=== PATIENT | male | born 1945 | race Caucasian/White ===

== ENCOUNTER 2016-05-26 05:31 | Inpatient (IN) | payer OTHER ==
[2016-05-26] MEDS ORDERED: CHLORHEXIDINE GLUC HIBICLENS 118 ML BTL TP ONE (06:00)
[2016-05-26] MEDS ORDERED: ceFAZolin 2 GM/DEXTROSE 100 ML IV ONE (06:00)
[2016-05-26] MEDS ORDERED: LR 1,000 ML IV ONE (06:11)
[2016-05-26] MEDS ORDERED: LIDOCAINE 1% 5 ML SDV ID PRN (06:11)
[2016-05-26] MEDS ORDERED: BUPIVACAINE/EPI 0.25% 30 ML SDV ONE (06:29)
[2016-05-26] MEDS ORDERED: THROMBIN (RECOMBINANT) 5,000 UNIT VIAL TP ONE (06:29)
[2016-05-26] MEDS ORDERED: BACITRACIN 50,000 UNITS/10 ML SYR IRR ONE ×2 (06:30→15:26)
[2016-05-26 06:43] LABS: % IMMATURE GRANULYOCYTES 0.2 % (0.0-1.1); ABSOLUTE IMMATURE GRANULOCYTES 0.01 10^3/uL (0.00-0.10); ADD DIFF? NO; ADD MORPH? NO; ADD SCAN? NO; ATYPICAL LYMPHOCYTE FLAG 0 (0-99); FRAGMENT RBC FLAG 0 (0-99); HEMATOCRIT 41.4 % (40.0-51.0); LEFT SHIFT FLG 0 (0-99); LIPEMIA HEMOLYSIS FLAG 90 (0-99); MEAN CELL HEMOGLOBIN 28.7 pg (27.9-34.1); MEAN CELL HEMOGLOBIN CONCENTR. 33.8 g/dL (32.4-36.7); MEAN CELL VOLUME 84.8 fL (81.5-99.8); MEAN PLATELET VOLUME 9.9 fL (8.7-11.7); PLATELET CLUMPS FLAG 0 (0-99); PLATELET COUNT 143 10^3/uL (150-400); RED BLOOD CELL COUNT 4.88 10^6/uL (4.40-6.38); RED CELL DISTRIBUTION WIDTH 12.8 % (11.5-15.2)
[2016-05-26 07:04] LABS: ANION GAP 12 mEq/L (8-16); CALCIUM 9.2 mg/dL (8.5-10.4); CARBON DIOXIDE 26 mEq/l (22-31); CHLORIDE 105 mEq/L (97-110); CREATININE 1.4 mg/dL (0.7-1.3); GLOMERULAR FILTRATION RATE 50; GLUCOSE 94 mg/dL (70-100); POTASSIUM 4.2 mEq/L (3.5-5.2); SODIUM 143 mEq/L (134-144)
[2016-05-26] MEDS ORDERED: DIAZEPAM 5 MG TAB PO PRN (07:42)
[2016-05-26] MEDS ORDERED: LACTULOSE 20 GM/30 ML UDCUP PO PRN (07:42)
[2016-05-26] MEDS ORDERED: diphenhydrAMINE 25 MG CAP PO PRN (07:42)
[2016-05-26] MEDS ORDERED: BISACODYL 10 MG SUPP PR PRN (07:42)
[2016-05-26] MEDS ORDERED: ONDANSETRON 4 MG/2 ML VIAL IVP PRN (07:42)
[2016-05-26] MEDS ORDERED: HYDROmorphONE/DILAUDID 1 MG/ML SYR IVP PRN (07:42)
[2016-05-26] MEDS ORDERED: METHOCARBAMOL 750 MG TAB PO PRN (07:42)
[2016-05-26] MEDS ORDERED: POLYETHYLENE GLYCOL 3350 17 GM PKT PO PRN (07:42)
[2016-05-26] MEDS ORDERED: oxyCODONE IR 5 MG TAB PO PRN (07:42)
[2016-05-26] MEDS ORDERED: ACETAMINOPHEN 325 MG TAB PO PRN (07:42)
[2016-05-26] MEDS ORDERED: HYDROmorphONE/DILAUDID 6 MG/30 ML PCA IV PRN (07:42)
[2016-05-26] MEDS ORDERED: NALOXONE HCL 0.4 MG/ML INJ IVP PRN (07:42)
[2016-05-26] MEDS ORDERED: MAGNESIUM HYDROXIDE 30 ML UDCUP PO PRN (07:42)
[2016-05-26] MEDS ORDERED: DIAZEPAM 10 MG/2 ML SYR IVP PRN (07:42)
[2016-05-26] MEDS ORDERED: ONDANSETRON DISINTEGRATING 4 MG TAB PO PRN (07:42)
[2016-05-26] MEDS ORDERED: HYDROCODONE/APAP 10/325 TAB PO PRN (07:42)
[2016-05-26] MEDS ORDERED: TEMAZEPAM 15 MG CAP PO PRN (07:42)
[2016-05-26] MEDS ORDERED: NS W/ 20 KCl/L 1,000 ML IV SCH (07:45)
[2016-05-26] MEDS ORDERED: CEFAZOLIN 2 GM/DEXTROSE/100 ML BAG IV ONE (15:10)
[2016-05-26] MEDS ORDERED: MIDAZOLAM 2 MG/2 ML VIAL ONE (15:37)
[2016-05-26] MEDS ORDERED: KETAMINE 100 MG/10 ML SYR IVP ONE (15:55)
[2016-05-26] MEDS ORDERED: fentaNYL 100 MCG/2 ML INJ ONE ×3 (15:55→20:14)
[2016-05-26] MEDS ORDERED: REMIFENTANIL HCL 1 MG VIAL ONE (15:55)
[2016-05-26] MEDS ORDERED: PROPOFOL/EMULSION 500 MG/50 ML BOTTLE IV ONE (15:56)
[2016-05-26] MEDS ORDERED: PROPOFOL 200 MG/20 ML VIAL ONE (15:56)
[2016-05-26] MEDS ORDERED: fentaNYL 250 MCG/5 ML INJ ONE (17:08)
[2016-05-26 18:23] LABS: HEMATOCRIT 33.6 % (40.0-51.0); HEMOGLOBIN 11.3 g/dL (13.7-17.5)
--- NOTE | 2016-05-26 20:06 | DX ---
Intraoperative fluoroscopy. May 26, 2016. History: Lumbar spine surgery. Discussion: 34.06 seconds of intraoperative fluoroscopy, and [address] Jorden heaton lumbar spine instrumentation and fusion. Radiographs obtained during the procedure demonstrate placement of bilateral pedicle screws at L3, L4 , and L5 with posterior natalia fixation and metallic intervertebral graft at L3-L4 and L4-L5. There is a natomic alignment through the operative levels. Impression: 1. Intraoperative fluoroscopy during instrumentation and fusion of lumbar spine from L3 through L5.
--- NOTE | 2016-05-26 20:35 | SOAPPROG ---
SOAP Progress Note Assessment/Plan: Post Op Visit: S: Awake and alert. NAD. Pt with expected lower back pain O: AFVSS/PERRLA/EOMI no droop CN 2-12 grossly intact +lt touch 5/5 BUE/BLE = CDI [place] in place A/P: 70 yo male that is s/p TLIF at L3/4 and L4/5 -orders in -brace when out of bed -call with any questions or concerns -pt seen by Dr Rosario 05/26/16 20:33 Objective: Laboratory Results 05/26/16 18:10 05/26/16 06:35 ICD10 Worksheet Patient Problems: Problems Problem Status Diagnosed Arthrodesis status Acute Lumbar radicular pain Acute Lumbar stenosis Acute CAD - Coronary arteriosclerosis Acute Cardiomyopathy Acute Ventricular tachycardia Acute - ICD10 Problem Qualifiers (1) Lumbar stenosis (2) Lumbar radicular pain (3) Arthrodesis status
--- NOTE | 2016-05-26 20:49 | GOP ---
[f rep st] OPERATIVE REPORT DATE OF OPERATION: 05/26/2016 SURGEON: Judy Rosario MD BUILDING MAINTENANCE SUPERVISOR: Deric Domínguez PA-C PREOPERATIVE DIAGNOSIS: Right lumbosacral radiculopathy. Lumbar spondylolisthesis L4-5. Left L4 pars interarticularis fracture. Prior left L4-5 hemilaminotomy. Spinal stenosis at L3-4, L4-5. Lumbar degenerative disk disease L3-4, L4-5. POSTOPERATIVE DIAGNOSIS: Right lumbosacral radiculopathy. Lumbar spondylolisthesis L4-5. Left L4 pars interarticularis fracture. Prior left L4-5 hemilaminotomy. Spinal stenosis at L3-4, L4-5. Lumbar degenerative disk disease L3-4, L4-5. PROCEDURE PERFORMED: Posterolateral and intervertebral arthrodesis with right-sided decompressions L 3-4, L4-5 (17592, 52109), placement of biomechanical intervertebral device L3-4, L4-5 without anchors (47809 x2), same-incision bone graft harvest (94306), posterior segmental instrumentation L3, L4, L5 (59699), spinal stereotaxy (57784), microscope. FINDINGS: ESTIMATED BLOOD LOSS: 400 cc. INDICATIONS: The patient is a gentleman with a prior successful left-sided decompression at L4-5 who presented with increasing right-sided gluteal pain that was unresponsive to conservative measures, a nd CT myelogram demonstrated progressive changes at L3-4, L4-5, and a new left inferior articulating process fracture on the left of L4, with a spondylolisthesis at L4-5 and progression of degenerative disk disease L3-4, L4 5 with stenosis. I suggested a 2-level decompression with a fusion at L3-4, L4 -5 and the risk of screw and hardware malposition, malfunction, adjacent segment disease, nerve injur y, spinal fluid leak, continued symptoms, major vascular injury was discussed. He knew that he is at risk of pseudoarthrosis and this risk was increased given his diabetes. He accepted these risks. H e wanted to proceed. DESCRIPTION OF PROCEDURE: The patient was taken to the operating room, placed in the supine position . General anesthesia was begun. He was flipped prone onto the Jhonathan table. Care was taken to pad all points of contact. He had a percutaneous defibrillator in place and this was accessible by the inseam leveler. He was sterilely prepped and draped in the usual fashion. We opened his prior incision , made about a 7 cm incision in the lumbosacral spine in the midline. The subcutaneous tissue was di ssected using Bovie cautery down to the fascia. A Subperiosteal dissection was made down the inferio r lamina of L2. The laminae of L3, 4 and 5 was exposed. We shot a localizing x-ray, removed the hyp ertrophic facets bilaterally at L3-4, L4 5, preserving the L2-3 joint. The Stealth reference frame w as placed. We placed pedicle screws bilaterally at L3, L4, and L5. They were all in excellent posit ion. They all stimulated greater than 20 milliamperes. We took 60 mm rods, increased the lordosis i n the rods, placed them down over the screws, and distracted L3-4, L4-5, and got reduction of the spo ndylolisthesis of L4. We were very happy with this and we tightened the rods in this configuration. We then removed all soft tissue from bone at L3-4, L4-5, and then harvested the entire L4 spinous pr ocess for autologous grafting purposes and the inferior L3 spinous process for autologous grafting pu rposes. Under the operating microscope, we drilled a right L3-4, L4-5 hemilaminectomy and harvested this bone for autologous grafting purposes, and used a Kerrison punch to perform hemilaminectomies on the right at L3-4, L4-5, removing the complete IAP of L3 and L4 on the right, decompressing the exit ing L3 and L4 nerve roots on the right-hand side. The lateral thecal sac and central thecal sac were decompressed at each level, and there was severe stenosis for both the L4 and the L5 nerve root. Th e L5 nerve root in particular was crushed in the lateral recess by severe spondylosis, and he had a v rukhsana deep lateral recess on the right at L4-5. A nice decompression was obtained. We mobilized both the traversing L5 root and the traversing L4 root at each of the spaces, and under the scope we remov ed the disk and the cartilaginous endplates at L3-4 and L4-5 and roughened the subchondral bone to cr eate arthrodesis. We then sized and chose a 7 x 28 mm expandable cage for L3-4 and an 8 x 28 mm cage for L4-5, inserted the devices under fluoroscopic guidance, and then expanded them according to comp any specification. We placed BMP and bone autograft into the disk space as well to create arthrodesi s. They were in excellent position. We decorticated all the remaining bone posterolaterally bilater ally at L3-4, L4-5, and then placed bone autograft and BMP posterolaterally bilaterally from L3 all t he way down the L5. A subfascial drain and a cross-link was placed and torqued to company specificat ion. We closed the incision in multiple layers using Vicryl sutures. A running PDS was placed in th e skin itself. There were no complications. COMPLICATIONS: None. /[id number]/MODL
[2016-05-26] MEDS: CARVEDILOL 25 MG TAB PO SCH ×2 (22:10→22:28)
[2016-05-26] MEDS: glyBURIDE 5 MG TAB PO SCH ×2 (22:11→22:29)
[2016-05-26] MEDS: FUROSEMIDE 20 MG TAB PO SCH (22:11)
[2016-05-26] MEDS: FAMOTIDINE 20 MG/NACL 50 ML IV SCH ×2 (22:11→22:29)
[2016-05-26] MEDS: metFORMIN HCL 500 MG TAB PO SCH ×2 (22:12→22:30)
[2016-05-26] MEDS: LOSARTAN POTASSIUM 25 MG TAB PO SCH (22:12)
[2016-05-26] MEDS: morphINE SR 15 MG TAB PO SCH ×2 (22:12→22:30)
[2016-05-26] MEDS: SENNOSIDES/DOCUSATE SODIUM TAB PO SCH ×2 (22:13→22:31)
[2016-05-26] MEDS: PANTOPRAZOLE SODIUM 40 MG TAB PO SCH (22:13)
[2016-05-26] MEDS: ATORVASTATIN CALCIUM 40 MG TAB PO SCH (22:27)
[2016-05-27 04:49] LABS: % IMMATURE GRANULYOCYTES 0.4 % (0.0-1.1); ABSOLUTE IMMATURE GRANULOCYTES 0.03 10^3/uL (0.00-0.10); ADD DIFF? NO; ADD MORPH? NO; ADD SCAN? NO; ATYPICAL LYMPHOCYTE FLAG 0 (0-99); FRAGMENT RBC FLAG 0 (0-99); HEMATOCRIT 31.7 % (40.0-51.0); HEMOGLOBIN 10.9 g/dL (13.7-17.5); LEFT SHIFT FLG 0 (0-99); LIPEMIA HEMOLYSIS FLAG 90 (0-99); MEAN CELL HEMOGLOBIN 28.9 pg (27.9-34.1); MEAN CELL HEMOGLOBIN CONCENTR. 34.4 g/dL (32.4-36.7); MEAN CELL VOLUME 84.1 fL (81.5-99.8); MEAN PLATELET VOLUME 9.8 fL (8.7-11.7); PLATELET CLUMPS FLAG 10 (0-99); PLATELET COUNT 117 10^3/uL (150-400); RED BLOOD CELL COUNT 3.77 10^6/uL (4.40-6.38); RED CELL DISTRIBUTION WIDTH 12.7 % (11.5-15.2)
[2016-05-27 05:13] LABS: ANION GAP 7 mEq/L (8-16); CALCIUM 7.9 mg/dL (8.5-10.4); CARBON DIOXIDE 24 mEq/l (22-31); CHLORIDE 105 mEq/L (97-110); GLUCOSE 131 mg/dL (70-100); POTASSIUM 4.7 mEq/L (3.5-5.2); SODIUM 136 mEq/L (134-144)
[2016-05-27 05:14] LABS: GLOMERULAR FILTRATION RATE > 60
[2016-05-27] MEDS: LOSARTAN POTASSIUM 25 MG TAB PO SCH (08:25)
[2016-05-27] MEDS: CARVEDILOL 25 MG TAB PO SCH ×2 (08:25→18:21)
[2016-05-27] MEDS: glyBURIDE 5 MG TAB PO SCH ×3 (08:25→22:05)
[2016-05-27] MEDS: SENNOSIDES/DOCUSATE SODIUM TAB PO SCH ×2 (08:26→22:05)
[2016-05-27] MEDS: FUROSEMIDE 20 MG TAB PO SCH (08:27)
[2016-05-27] MEDS: metFORMIN HCL 500 MG TAB PO SCH ×2 (08:27→18:21)
[2016-05-27] MEDS: morphINE SR 15 MG TAB PO SCH ×2 (08:27→22:08)
[2016-05-27] MEDS: PANTOPRAZOLE SODIUM 40 MG TAB PO SCH (08:28)
[2016-05-27] MEDS: FAMOTIDINE 20 MG/NACL 50 ML IV SCH (08:31)
[2016-05-27] MEDS: INSULIN GLARGINE 100 UNITS/ML SYRINGE SC SCH (08:57)
--- NOTE | 2016-05-27 09:09 | NEUSURGPN ---
Date of Surgery: 05/26/16 Post Op Day: 1 Assessment/Plan: Assessment: 70 yo male that is s/p TLIF at L3/4 and L4/5 POD #1 Plan: -s/p TLIF at L3/4 and L4/5-pt with expected lower back pain -tolerating brace fine -PT/OT ordered -pending post op xrays today -continue with current pain management strategy -brace when out of bed -call with any questions or concerns -pt seen by Dr Rosario 05/26/16 20:33 Subjective: Awake and alert. NAD. Eating/drinking and voiding. No f/c/n/v/d. Pt with expected lower back pain Objective: AFVSS/PERRLA/EOMI no droop CN 2-12 grossly intact +lt touch 5/5 BUE/BLE = CDI [place] in place Neuro Check Frequency: per routine Urinary Catheter in Place: No Catheter Insertion Date: 05/26/16 - Physician Discussed Patient with DrGolden: Abraham Patient Seen by : Abraham Neurosurgery Physical Exam - Vitals, I&O, Labs I and O 05/26/16 05/27/16 05/28/16 05:59 05:59 05:59 Intake Total 3730 Output Total 1950 50 Balance 1780 -50 Intake: Oral (ml) 30 IV Intake (ml) 3000 IV Infused (ml) 700 ceFAZolin 1 GM/DEXTROSE 50 50 ml @ 200 mls/hr IV Q8H [facility] Rx#:[id number] Famotidine 20 mg/NaCl 50 50 ml @ 200 mls/hr IV Q12HRS [facility] Rx#:[id number] NS W/ 20 KCl/L 1,000 ml @ 600 75 mls/hr IV CONT [facility] Rx #:[id number] Output: Urine (ml) 1075 Catheter 1075 Estimated Blood Loss (ml) 500 Wound Drainage (ml) 375 50 #1 Posterior Back Jhonathan 290 50 Fisher Right Jhonathan Fisher 85 Other: Output Comment Catheter blood with cath removal Bladder Scan Volume (ml) Catheter 0 Vital Signs Temp Pulse Resp BP Pulse Ox 37.1 C 85 15 123/77 H 97 05/27/16 07:59 05/27/16 07:59 05/27/16 07:59 05/27/16 07:59 05/27/16 07:59 Laboratory Results 05/27/16 04:32 05/27/16 04:32 ICD10 Worksheet Patient Problems: Problems Problem Status Diagnosed Arthrodesis status Acute Lumbar radicular pain Acute Lumbar stenosis Acute CAD - Coronary arteriosclerosis Acute Cardiomyopathy Acute Ventricular tachycardia Acute - ICD10 Problem Qualifiers (1) Lumbar stenosis (2) Lumbar radicular pain (3) Arthrodesis status
--- NOTE | 2016-05-27 10:08 | DX ---
Lumbar Spine, Two Views. History: Postoperative evaluation. Comparison: CT January 2016. Findings: Postsurgical changes are seen of fusion L3-L5. There are paired pedicle screws and stabiliz ation rods. Interbody bone graft and spacers are seen at these two levels in good position. There is 5 mm retrolisthesis of L2 on L3. There is 4 mm anterolisthesis of L5 on S1. No evidence for acute fr acture. Anterior and lateral osteophytosis is seen at multiple levels. Laminectomy at L4. Single drai n is seen in place posteriorly. Impression: Postsurgical changes of fusion L3-L5 as above. Mild listhesis at L2-L3 and L5-S1.
[2016-05-27] MEDS: ATORVASTATIN CALCIUM 40 MG TAB PO SCH (18:21)
[2016-05-28 04:45] VITALS: TEMP 97.5
[2016-05-28 08:10] VITALS: BP 106/53; PULSE 84; RESP 14; O2SAT 92
[2016-05-28] MEDS: CARVEDILOL 25 MG TAB PO SCH (08:11)
[2016-05-28] MEDS: LOSARTAN POTASSIUM 25 MG TAB PO SCH (08:12)
[2016-05-28] MEDS: PANTOPRAZOLE SODIUM 40 MG TAB PO SCH (08:12)
[2016-05-28] MEDS: metFORMIN HCL 500 MG TAB PO SCH (08:12)
[2016-05-28] MEDS: FUROSEMIDE 20 MG TAB PO SCH (08:14)
[2016-05-28] MEDS: INSULIN GLARGINE 100 UNITS/ML SYRINGE SC SCH (08:14)
[2016-05-28] MEDS: glyBURIDE 5 MG TAB PO SCH (08:14)
[2016-05-28] MEDS: SENNOSIDES/DOCUSATE SODIUM TAB PO SCH (08:14)
[2016-05-28] MEDS: morphINE SR 15 MG TAB PO SCH (10:37)
--- NOTE | 2016-05-28 11:28 | NEUSURGPN ---
Date of Surgery: 05/26/16 Post Op Day: 2 Assessment/Plan: Assessment: 70 yo male that is s/p TLIF at L3/4 and L4/5 POD #2 Plan: -s/p TLIF at L3/4 and L4/5- doing well overall. pain well controlled this AM -tolerating brace fine -PT/OT ordered -continue with current pain management strategy -brace when out of bed -call with any questions or concerns -DC today Subjective: in bedside chair, doing well. Pain well controlled ambulatory Objective: Neuro: KELLER, sens +LT ambulatory Dressing: CDI No [place] Urinary Catheter in Place: No Catheter Insertion Date: 05/26/16 Neurosurgery Physical Exam - Vitals, I&O, Labs I and O 05/27/16 05/28/16 05/29/16 05:59 05:59 05:59 Intake Total 3730 1440 Output Total 1950 335 Balance 1780 1105 Intake: Oral (ml) 30 1390 IV Intake (ml) 3000 IV Infused (ml) 700 50 ceFAZolin 1 GM/DEXTROSE 50 50 50 ml @ 200 mls/hr IV Q8H [facility] Rx#:[id number] Famotidine 20 mg/NaCl 50 50 ml @ 200 mls/hr IV Q12HRS [facility] Rx#:[id number] NS W/ 20 KCl/L 1,000 ml @ 600 75 mls/hr IV CONT [facility] Rx #:[id number] Output: Urine (ml) 1075 Catheter 1075 Estimated Blood Loss (ml) 500 Wound Drainage (ml) 375 335 #1 Posterior Back Jhonathan 290 335 Fisher Right Jhonathan Fisher 85 Other: Output Comment Catheter blood with cath removal Number of Voids Urinal 3 Incontinence 1 Number of Stools Urinal 1 Toilet 1 Bladder Scan Volume (ml) Catheter 0 Vital Signs Temp Pulse Resp BP Pulse Ox 36.4 C 84 14 106/53 L 92 05/28/16 04:00 05/28/16 08:00 05/28/16 08:00 05/28/16 08:00 05/28/16 08:00 Laboratory Results 05/27/16 04:32 05/27/16 04:32 ICD10 Worksheet Patient Problems: Problems Problem Status Diagnosed Arthrodesis status Acute Lumbar radicular pain Acute Lumbar stenosis Acute CAD - Coronary arteriosclerosis Acute Cardiomyopathy Acute Ventricular tachycardia Acute
[2016-05-29] MEDS ORDERED: ENOXAPARIN 40 MG/0.4 ML SYR SC SCH (09:00)
== END 2016-05-28 16:19 | disposition home or self-care (01) | DRG 460 ==
LOC: F3E 05:31 → F3N 10:44
PROVIDERS: ADMIT Neurological Surgery; ATTEND Neurological Surgery
PROC: 0SG10AJ Fusion of 2 or more Lumbar Vertebral Joints with Interbody Fusion Device, Posterior Approach, Anterior Column, Open Approach (ICD-10-PCS; principal; 2016-05-26 07:30)
PROC: 4A1004G Monitoring of Central Nervous Electrical Activity, Intraoperative, Open Approach (ICD-10-PCS; principal; 2016-05-26 07:30)
PROC: 8E0WXBZ Computer Assisted Procedure of Trunk Region (ICD-10-PCS; principal; 2016-05-26 07:30)
PROC: 01NB0ZZ Release Lumbar Nerve, Open Approach (ICD-10-PCS; principal; 2016-05-26 07:30)
DX: M43.16 Spondylolisthesis, lumbar region (principal); M51.36 Other intervertebral disc degeneration, lumbar region; M43.17 Spondylolisthesis, lumbosacral region; M51.26 Other intervertebral disc displacement, lumbar region; I10 Essential (primary) hypertension; E78.00 Pure hypercholesterolemia, unspecified; I25.10 Atherosclerotic heart disease of native coronary artery without angina pectoris; I25.2 Old myocardial infarction; I25.5 Ischemic cardiomyopathy; K21.9 Gastro-esophageal reflux disease without esophagitis; E11.9 Type 2 diabetes mellitus without complications; Z95.810 Presence of automatic (implantable) cardiac defibrillator
CPT/HCPCS: 97116-GP; 97161-GP; 97165-GO; C1713; G8978-GP-CI; G8979-GP-CI; G8980-GP-CI; G8987-GO-CI; G8988-GO-CI; G8989-GO-CI; J0690; J1170; J1815; J2250; J2704; J3010

== ENCOUNTER → 2016-07-20 | Outpatient (CLI) | payer OTHER | LOC: FLAB 13:43 → EDSTATUS 13:45 → FIMAGING 13:46 | PROVIDERS: ATTEND Neurological Surgery | DX: Z98.1 Arthrodesis status (principal); M41.86 Other forms of scoliosis, lumbar region; M51.36 Other intervertebral disc degeneration, lumbar region; M51.26 Other intervertebral disc displacement, lumbar region ==

== ENCOUNTER → 2016-08-02 | Outpatient (CLI) | payer OTHER | LOC: BHFA 14:00 | PROVIDERS: ATTEND Internal Medicine Cardiovascular Disease | DX: I50.22 Chronic systolic (congestive) heart failure (principal); I25.810 Atherosclerosis of coronary artery bypass graft(s) without angina pectoris; R06.02 Shortness of breath; N18.9 Chronic kidney disease, unspecified ==

== ENCOUNTER → 2016-10-04 | Outpatient (CLI) | payer OTHER | LOC: FIMAGING 15:44 | PROVIDERS: ATTEND Neurological Surgery | DX: Z09 Encounter for follow-up examination after completed treatment for conditions other than malignant neoplasm (principal); Z98.1 Arthrodesis status ==

== ENCOUNTER → 2016-11-23 | Outpatient (CLI) | payer OTHER | LOC: FIMAGING 08:13 | PROVIDERS: ATTEND Internal Medicine Endocrinology, Diabetes & Metabolism | DX: E05.90 Thyrotoxicosis, unspecified without thyrotoxic crisis or storm (principal); R94.6 Abnormal results of thyroid function studies | CPT/HCPCS: 78014; A9516 ==

== ENCOUNTER → 2016-12-06 | Outpatient (CLI) | payer OTHER | LOC: BHFA 09:15 | PROVIDERS: ATTEND Internal Medicine | DX: I50.9 Heart failure, unspecified (principal); R06.00 Dyspnea, unspecified ==

== ENCOUNTER → 2016-12-31 | Outpatient (CLI) | payer OTHER | LOC: BHFA 09:15 | PROVIDERS: ATTEND Internal Medicine Interventional Cardiology | DX: R09.89 Other specified symptoms and signs involving the circulatory and respiratory systems (principal) ==

== ENCOUNTER → 2017-04-12 | Outpatient (CLI) | payer OTHER | LOC: FIMAGING 10:57 | PROVIDERS: ATTEND Neurological Surgery | DX: Z09 Encounter for follow-up examination after completed treatment for conditions other than malignant neoplasm (principal); Z98.1 Arthrodesis status ==

== ENCOUNTER → 2017-10-26 | Outpatient (CLI) | payer OTHER | LOC: FIMAGING 10:36 | PROVIDERS: ATTEND Neurological Surgery | DX: Z09 Encounter for follow-up examination after completed treatment for conditions other than malignant neoplasm (principal); Z98.1 Arthrodesis status; M43.16 Spondylolisthesis, lumbar region; M99.23 Subluxation stenosis of neural canal of lumbar region; M25.78 Osteophyte, vertebrae ==

== ENCOUNTER → 2018-05-04 | Outpatient (CLI) | payer OTHER | LOC: FIMAGING 14:48 | PROVIDERS: ATTEND Physician Assistant | DX: Z98.1 Arthrodesis status (principal) ==

== ENCOUNTER 2018-10-10 21:20 | Emergency (ER) | payer OTHER | END 2018-10-11 01:05 | disposition home or self-care (01) ==